=== PATIENT | female | born 1995 | race Caucasian/White ===

== ENCOUNTER 2017-08-08 23:19 | Emergency (ER) | payer OTHER ==
--- NOTE | 2017-08-08 23:51 | EDPHY ---
General - History Smoking Status: Current every day smoker Narrative: PHYSICIAN DOCUMENTATION: The patient was evaluated and managed by the Physician Driver Merchandiser. My co- signature indicates that I have reviewed this chart and I agree with the findings and plan of care as documented. I am the secondary supervising physician. 7:00 a.m.- Patient stable throughout my shift, still sobering from her alcohol intoxication. All labs are otherwise unremarkable and she is medically clear. I anticipate she will be ready for evaluation later this morning. The case will be signed out to the oncoming provider Dr. Fontana. (Farrah Sotelo) I assumed care of this patient from Dr. Sotelo at 7:00 a.m.. A mental health evaluation was performed. She admits to alcohol abuse. She is no longer actively suicidal and it is felt that the M1 hold can be lifted. The mental health team spoke with her [place] providers and they will be arranging appropriate follow-up for her. She is given information about local resources such as [facility] and [facility]. (Albertina Fontana ) CHIEF COMPLAINT: Suicidal ideation, cutting HISTORY OF PRESENT ILLNESS: Patient arrives voluntarily with her friend at bedside. She admits to suicidal ideation and cutting. The suicidal ideation involves plans of killing herself with ingestion of pain medication. She does have access to this. She also admits to cutting her shoulder this evening. This has been ongoing for the past 2 years. She received outpatient care for this but no medication. The thoughts of suicide by overdose were this evening. She has been thinking about a continuously. She expresses intent previously but no intent at this time. She admits to alcoholism with alcohol intake tonight. She says that she does not count her drinks. She denies any drug use. Tetanus is up-to-date. No other associated complaints or modifying factors. PSYCHIATRIC DIAGNOSES: Depression, anxiety, alcoholism PRIOR PSYCHIATRIC EVALUATIONS: Outpatient therapy only M1/DETAINER: Here by Dr. Sotelo at 11:53 p.m. REVIEW OF SYSTEMS: Ten systems reviewed and are negative unless otherwise noted in the HPI EXAMINATION General Appearance: Alert, no distress, odor of alcohol about her Head: normocephalic, atraumatic Eyes: Pupils equal and round, no conjunctival pallor or injection ENT, Mouth: Mucous membranes moist. Airway patent Neck: Normal inspection, supple, non-tender Respiratory: Lungs are clear to auscultation. no wheezing rhonchi or crackles Cardiovascular: Regular rate and rhythm. No murmur Gastrointestinal: Abdomen is soft and nontender Back: non-tender, no bony abnormalities Neurological: A&O, nonfocal, strength symmetric Skin: Warm and dry, no rash. Too numerous to count superficial lacerations of both deltoid regions. None of which require suture repair. No active bleeding. No foreign body. These appear clean Extremities: Nontender, no pedal edema Psychiatric: Flat affect. Suicidal ideation with plans of ingestion of pain medication. Plan of cutting her arms DIFFERENTIAL DIAGNOSES: Including but not limited to suicidal ideation, suicide attempt, cutting, depression, alcoholism, acute alcohol intoxication MDM: 11:50 p.m. Suicidal ideation with plan of overdosing on pain medication. She also cut her shoulders this evening. None of which will require suture repair. She is depressed with flat affect and I have placed her on an M1 hold. She is aware of this. Proceed with medical clearance and evaluation. She admits to alcohol ingestion this evening but denies any drug use. 12:30 a.m. At this time Dr. Sotelo will assume care the patient. Patient is pending clearance for medical evaluation. She is cooperative in no acute distress. Please see the note of Dr. Sotelo for final disposition. (Seng Gallardo) - Objective Vital Signs: Initial Vital Signs Temperature (C) 98.8 F 08/08/17 23:23 Heart Rate 92 08/08/17 23:23 Respiratory Rate 16 08/08/17 23:23 Blood Pressure 135/88 H 08/08/17 23:23 O2 Sat (%) 96 08/08/17 23:23 O2 Delivery Mode Room Air Allergies/Adverse Reactions: Penicillins Allergy (Severe, Verified 08/08/17 23:25) Home Medications: Medication Instructions Recorded NK [No Known Home Meds] 08/08/17 Laboratory Results: Laboratory Results 08/08/17 23:41 08/08/17 23:41 Departure - Departure Disposition: Home, Routine, Self-Care Clinical Impression: Suicidal ideation, Alcoholism Condition: Fair Instructions: Abuse of Alcohol (ED) Additional Instructions: Follow-up as per your [place] physicians. Referrals: [facility] [Other] - As per Instructions AA Hotline [Outside] - As per Instructions [facility] 24 Hours [Outside] - As per Instructions
[2017-08-09 00:04] LABS: % IMMATURE GRANULYOCYTES 0.2 % (0.0-1.1); ABSOLUTE IMMATURE GRANULOCYTES 0.01 10^3/uL (0.00-0.10); ADD DIFF? NO; ADD MORPH? NO; ADD SCAN? NO; ATYPICAL LYMPHOCYTE FLAG 10 (0-99); FRAGMENT RBC FLAG 20 (0-99); HEMATOCRIT 45.5 % (38.0-47.0); HEMOGLOBIN 16.2 g/dL (12.6-16.3); LEFT SHIFT FLG 0 (0-99); LIPEMIA HEMOLYSIS FLAG 90 (0-99); MEAN CELL HEMOGLOBIN 31.5 pg (27.9-34.1); MEAN CELL HEMOGLOBIN CONCENTR. 35.6 g/dL (32.4-36.7); MEAN CELL VOLUME 88.3 fL (81.5-99.8); PLATELET CLUMPS FLAG 0 (0-99); PLATELET COUNT 257 10^3/uL (150-400); RED BLOOD CELL COUNT 5.15 10^6/uL (4.18-5.33); RED CELL DISTRIBUTION WIDTH 13.3 % (11.5-15.2)
[2017-08-09 00:10] LABS: ANION GAP 22 mEq/L (8-16); CALCIUM 9.5 mg/dL (8.5-10.4); CARBON DIOXIDE 18 mEq/l (22-31); CHLORIDE 106 mEq/L (97-110); CREATININE 0.6 mg/dL (0.6-1.0); ETHANOL SERUM 263 mg/dL (0-10); GLOMERULAR FILTRATION RATE > 60; GLUCOSE 109 mg/dL (70-100); POTASSIUM 3.8 mEq/L (3.5-5.2); SALICYLATE < 1.0 mg/dL (2.0-20.0); SODIUM 146 mEq/L (134-144)
[2017-08-09 08:44] VITALS: TEMP 97.7
[2017-08-09 10:35] VITALS: BP 126/78; PULSE 72; RESP 12; O2SAT 97
== END 2017-08-09 10:34 | disposition home or self-care (01) ==
DX: R45.851 Suicidal ideations (principal); F10.20 Alcohol dependence, uncomplicated; F17.200 Nicotine dependence, unspecified, uncomplicated
CPT/HCPCS: 80305; G0480